=== PATIENT | female | born 1990 | race Caucasian/White ===

== ENCOUNTER 2016-05-21 05:40 | Emergency (ER) | payer OTHER | END 2016-05-21 06:37 | disposition left against medical advice (07) | LOC: ER 05:40 | DX: Z53.21 Procedure and treatment not carried out due to patient leaving prior to being seen by health care provider (principal) ==

== ENCOUNTER 2016-05-21 06:49 | Emergency (ER) | payer OTHER ==
[~2016-05-21] VITALS: Ht 165.1 cm; Wt 52.2 kg
[2016-05-21] MEDS ORDERED: KETOROLAC TROMETHAMINE INJ 30 MG/ML VIAL IV ONE (08:00)
[2016-05-21] MEDS ORDERED: diphenhydrAMINE HCL 50 MG/ML VIAL IV ONE (08:00)
[2016-05-21] MEDS ORDERED: IV NS 0.9% 1,000 ML BAG IV ONE (08:00)
[2016-05-21] MEDS ORDERED: METOCLOPRAMIDE HCL 10 MG/2 ML VIAL IV ONE (08:00)
[2016-05-21] MEDS ORDERED: diphenhydrAMINE HCL 50 MG/ML VIAL ONE (08:03)
[2016-05-21] MEDS ORDERED: METOCLOPRAMIDE HCL 10 MG/2 ML VIAL ONE (08:03)
[2016-05-21] MEDS ORDERED: IV NS 0.9% 1,000 ML ONE (08:03)
[2016-05-21] MEDS ORDERED: IV SET PRIMARY 1 EA INFUS.SET MC ONE (08:03)
[2016-05-21] MEDS ORDERED: KETOROLAC TROMETHAMINE INJ 30 MG/ML VIAL ONE (08:04)
[2016-05-21 09:36] VITALS: BP 119/75
== END 2016-05-21 09:36 | disposition home or self-care (01) ==
LOC: ER 06:52
DX: R51 Headache (principal)
CPT/HCPCS: 84703; 96361; 96374; 96375; 99284; A4606; J1200; J1885; J2765; J7030; Z7610